=== PATIENT | male | born 1965 | race Caucasian/White ===

== ENCOUNTER 2019-01-06 07:32 | Day surgery (SDC) | payer OTHER ==
[~2019-01-06] VITALS: Ht 175.3 cm; Wt 112.5 kg
[~2019-01-06 07:32] MED LIST: CALCIUM 600 +1 EACH PO; CENTRUM SILVER1 EAC1 PO; CLARITIN-D 241 EACH PO; GEMFIBROZIL600 MG PO; HYDROCHLOROTH12.5 M1 PO; TOPROL XL200 MG PO
[2019-01-06] MEDS ORDERED: VITAMIN D10000 UNIT PO (07:47)
--- NOTE | 2019-01-06 09:03 | NUR ---
01/06/19 0903 Willa Baltazar 0858 PT TO PACU SLEEPY BUT AROUSABLE DENIES PAIN OR NAUSEA O2 ON 2L NASAL CANNULA.
--- NOTE | 2019-01-06 18:09 | OR ---
[facility] [address], [place] [address] Signed DATE OF OPERATION: 01/06/2019 SURGEON: Luzma Crawford MD PREOPERATIVE DIAGNOSIS: Prior history of tubular adenomas 2015. POSTOPERATIVE DIAGNOSIS: Normal colon to cecum, except for internal hemorrhoids. PROCEDURE: Total colonoscopy to cecum. ANESTHESIA: Intravenous sedation, fentanyl 100 mcg, Versed 6 mg. INDICATION: This 53-year-old white man is a patient of Teofilo Gutierrez PA-C and has no family history of colon cancer, but was seen in 2015 and underwent colonoscopy for which he had two tubular adenomas. Notably, he has undergone prostate cancer treatment in 2011, which included radical prostatectomy and subsequent radiation therapy. He is doing well in that regard. He is admitted at this time to undergo surveillance colonoscopy based on prior history of polyps. He understands the risks of bleeding, infection, and perforation. FINDINGS: The prep was adequate. Complete colonoscopy was undertaken to the cecum. There was no sign of polyps, diverticular formation, colitis, or cancer. He did have some internal hemorrhoidal changes. DESCRIPTION OF PROCEDURE: The patient was brought to the endoscopy suite and placed in lateral decubitus position, given intravenous sedation to the point of slurred speech and nystagmus. Digital rectal examination was normal. An Olympus video colonoscope was passed in the rectum and manipulated throughout the colon, ultimately intubating the cecum itself. The ileocecal valve and appendiceal orifice were normal. The scope was withdrawn from that point. Examination throughout showed no sign of abnormality, specifically no polyps, diverticular formation, colitis, or cancer. Retroflex view showed internal hemorrhoids. The scope was straightened, withdrawn, and removed. The patient taken to recovery room in good condition. Electronically Signed By: LUZMA CRAWFORD MD 01/06/19 1809 PATIENT NAME: MARYCRUZ KENNY OPERATIVE REPORT DATE OF : 63 REPORT #: [id number] PHYSICIAN: LUZMA CRAWFORD MD PCP: TEOFILO GUTIERREZ PA-C REPORT IS CONFIDENTIAL AND NOT TO BE RELEASED WITHOUT AUTHORIZATION [facility] [address], [place] [address] Signed CONCLUDING DIAGNOSIS: Essentially normal except for internal hemorrhoids. PLAN: Recommend high-fiber diet. Repeat colonoscopy in 5 years, sooner if clinically indicated. He will return to the ongoing care of Teofilo Tirado PA-C. MD DARRIUS Dejesus/MODL /[id number] Copies: ~ Electronically Signed By: LUZMA CRAWFORD MD 01/06/19 1809 PATIENT NAME: JAYSON KENNYSEBASTIÁN FERGUSON OPERATIVE REPORT DATE OF : 63 REPORT #: [id number] PHYSICIAN: LUZMA CRAWFORD MD PCP: TEOFILO GUTIERREZ PA-C REPORT IS CONFIDENTIAL AND NOT TO BE RELEASED WITHOUT AUTHORIZATION
== END 2019-01-06 09:44 | disposition home or self-care (01) ==
LOC: DS 07:32 → OPS 07:32 → DS 08:30 → OPS 09:44
PROVIDERS: Surgery
PROC: 0DJD8ZZ Inspection of Lower Intestinal Tract, Via Natural or Artificial Opening Endoscopic (ICD-10-PCS; principal; 2019-01-06 08:30)
DX: Z12.11 Encounter for screening for malignant neoplasm of colon (principal); K64.8 Other hemorrhoids; K21.9 Gastro-esophageal reflux disease without esophagitis; I10 Essential (primary) hypertension; Z88.2 Allergy status to sulfonamides; Z88.8 Allergy status to other drugs, medicaments and biological substances; Z79.899 Other long term (current) drug therapy; Z86.010 Personal history of colon polyps; Z85.46 Personal history of malignant neoplasm of prostate
CPT/HCPCS: J2250; J3010; J7120

== ENCOUNTER 2021-10-07 16:14 | Emergency (ER) | payer OTHER ==
[~2021-10-07] VITALS: Ht 175.3 cm; Wt 112.5 kg
[~2021-10-07 16:14] MED LIST changes: +VITAMIN D10000 UNIT PO
== END 2021-10-07 19:45 | disposition home or self-care (01) ==
LOC: ED 16:14
DX: U07.1 COVID-19 (principal); Z23 Encounter for immunization; Z88.2 Allergy status to sulfonamides; Z88.1 Allergy status to other antibiotic agents; Z79.899 Other long term (current) drug therapy
CPT/HCPCS: 96374; 96375; 99283-25; J1200; J2405; M0243; Q0244

== ENCOUNTER 2024-07-28 07:28 | Day surgery (SDC) | payer OTHER ==
[~2024-07-28] VITALS: Ht 175.3 cm; Wt 90.9 kg
[~2024-07-28 07:28] MED LIST changes: +IBLOOD GLUCOSE TEST STRIP 1 EA TEST VI PRN; +LACTATED RINGER'S 1,000 ML IV SCH; +LIDOCAINE HCL 1% 5 ML SDV INJ ONE; +MIDAZOLAM HCL 5 MG/5 ML VIAL IV PRN; +fentaNYL citrate 100 MCG/2 ML VIAL IV PRN
[2024-07-28 07:51] VITALS: BP 123/71
[2024-07-28] MEDS ORDERED: LISINOPRIL10 MG PO (07:54)
[2024-07-28] MEDS ORDERED: LEVOTHYROXINE50 MCG PO (07:55)
[2024-07-28] MEDS ORDERED: MIDAZOLAM HCL 5 MG/5 ML VIAL ONE (08:18)
[2024-07-28] MEDS ORDERED: fentaNYL citrate 100 MCG/2 ML VIAL ONE (08:19)
--- NOTE | 2024-07-28 09:12 | NUR ---
07/28/24 0912 Torey Hay 0905: PT ARRIVED TO PACU VIA STRETCHER. PT AROUSABLE TO TOUCH. PT TITRATED TO RA ON ARRIVAL.
[2024-07-28 09:32] VITALS: BP 117/57
--- NOTE | 2024-07-29 09:32 | OR ---
[facility] [address] [place], [place] [address] Signed DATE OF OPERATION: 07/28/2024 SURGEON: Luzma Crawford MD PREOPERATIVE DIAGNOSIS: Colon screening. POSTOPERATIVE DIAGNOSES: Sigmoid diverticula and internal hemorrhoids, otherwise normal. PROCEDURE: Total colonoscopy to the cecum. ANESTHESIA: Intravenous sedation; fentanyl 100 mcg, Versed 6 mg. INDICATION: This 59-year-old white man is a patient of RIO Talley. He has undergone colonoscopy by me in 2016 at which time, he had a polyp resected in 2019. Colonoscopy was normal. He has had some recent rectal bleeding that has resolved. He has no complaints of diarrhea or constipation. He is admitted to undergo colonoscopy. He understands the risk of bleeding, infection, and perforation. FINDINGS: The prep was adequate. Complete colonoscopy was undertaken to the cecum with full intubation of the cecum. There were few scattered diverticula of the sigmoid and internal hemorrhoids. DESCRIPTION OF PROCEDURE: The patient was brought to the endoscopy suite and placed in the lateral decubitus position, given intravenous sedation to the point of slurred speech and nystagmus with full cardiopulmonary monitoring. Digital rectal examination was normal. An Olympus video colonoscope was passed in the rectum and manipulated throughout the colon ultimately intubating the cecum itself. The ileocecal valve was normal. Appendiceal orifice was normal. Scope was withdrawn from that point and irrigation undertaken to free up adherent thickened bilious stained mucosal material. Careful inspection throughout the colon upon withdrawal of the scope was accomplished. Diverticula are noted in the sigmoid, they were few and scattered. Retroflexed view of the rectum showed internal hemorrhoidal change, but no sign of active bleeding or other Electronically Signed By: LUZMA CRAWFORD MD 07/29/24 0932 PATIENT NAME: MARYCRUZ KENNY OPERATIVE REPORT DATE OF : 63 REPORT #: [id number] PHYSICIAN: LUZMA CRAWFORD MD PCP: TEOFILO AGUAYO PA-C REPORT IS CONFIDENTIAL AND NOT TO BE RELEASED WITHOUT AUTHORIZATION [facility] [address] [facility] [place], [place] [address] Signed problem. The scope was removed and the patient was taken to recovery room in good condition. CONCLUDING DIAGNOSES: Minimal diverticula and internal hemorrhoids. PLAN: Recommend repeat colonoscopy in 10 years, sooner if clinical symptoms should warrant. Would recommend a high-fiber diet or a fiber supplement such as Metamucil or Citrucel. He will return to the ongoing care of RIO Talley. MD DARRIUS Dejesus/SHIRLEY /[id number] cc: RIO Talley. Copies: ~ Electronically Signed By: LUZMA CRAWFORD MD 07/29/24 0932 PATIENT NAME: MARYCRUZ KENNY OPERATIVE REPORT DATE OF : 63 REPORT #: [id number] PHYSICIAN: LUZMA CRAWFORD MD PCP: TEOFILO AGUAYO PA-C REPORT IS CONFIDENTIAL AND NOT TO BE RELEASED WITHOUT AUTHORIZATION
== END 2024-07-28 09:45 | disposition home or self-care (01) ==
LOC: DS 07:28
PROVIDERS: ATTEND Surgery
PROC: 0DJD8ZZ Inspection of Lower Intestinal Tract, Via Natural or Artificial Opening Endoscopic (ICD-10-PCS; principal; 2024-07-28 08:30)
DX: Z12.11 Encounter for screening for malignant neoplasm of colon (principal); K57.30 Diverticulosis of large intestine without perforation or abscess without bleeding; K64.8 Other hemorrhoids; I10 Essential (primary) hypertension; Z86.0100 Personal history of colon polyps, unspecified; Z79.899 Other long term (current) drug therapy; Z85.46 Personal history of malignant neoplasm of prostate; Z85.810 Personal history of malignant neoplasm of tongue; Z88.2 Allergy status to sulfonamides
CPT/HCPCS: 99153; G0500; J2250; J3010